=== PATIENT | female | born 1955 | race Caucasian/White ===

== ENCOUNTER 2019-09-18 18:57 | Emergency (ER) | payer BC ==
--- NOTE | 2019-09-18 21:01 | EDM.PDOC ---
ED HPI GENERAL MEDICAL PROBLEM - General Chief Complaint: Fever Stated Complaint: FEVER,BODY ACHES Time Seen by Provider: 09/18/19 19:16 Source of Information: Reports: Patient History Limitations: Reports: No Limitations - History of Present Illness INITIAL COMMENTS - FREE TEXT/NARRATIVE: This is a 64-year-old female. She has rectal cancer that has metastasized to her lungs and to her liver. She is under immunotherapy by Dr. Beyer at [facility]. Apparently she noted that she was running a low-grade fever at home yesterday and call Dr. Beyer and he indicated that if it climbs above 100.5 he needs to be notified. It did that today and even went up to 101 at home. She was told to come to the ER for evaluation. She denies any cold or congestion. She denies any sore throat and no ear pain. She has had no cough and no chest pain. She has had nausea but no vomiting. Was given an infusion of magnesium yesterday and she developed a headache yesterday but that is kind of normal for her. Her possible exposure to COVID is a son-in-law who was exposed to his mother that tested positive. He is showing no signs or symptoms of COVID but he cannot get tested until next Friday. Does complain of body aching with the fever. She believes that the headache is related to her magnesium infusion. Her last immunotherapy was about 2 weeks ago. - Related Data Allergies Allergy/AdvReac Type Severity Reaction Status Date / Time ciprofloxacin Allergy Severe Cannot Verified 09/18/19 19:16 Remember silver Allergy Severe Rash Verified 09/18/19 19:16 [From Tegaderm AG Mesh] Home Meds: Home Meds guaiFEN/Phenyleph/Acetaminophn [Tylenol Sinus Congest-Pain Cpl] 1 tab PO PRN 08/09/13 [History] Acetaminophen/oxyCODONE [Percocet 325-5 MG] 1 - 2 tab PO Q4H PRN #60 tab 08/10/13 [Rx] Lidocaine/Prilocaine [EMLA Crm] 1 gm TOP DAILY PRN #1 tube 08/10/13 [Rx] Past Medical History Oncologic (Cancer) History: Reports: Liver, Lung, Other (See Below) Other Oncologic History: anus - Past Surgical History GI Surgical History: Reports: Appendectomy, Colostomy, Other (See Below) Other GI Surgeries/Procedures: resection of liver, abdominoperineal resection. removed anus, rectum, rebuilt vagina Social & Family History - Tobacco Use Smoking Status *Q: Never Smoker Second Hand Smoke Exposure: No - Caffeine Use Caffeine Use: Reports: None - Recreational Drug Use Recreational Drug Use: No ED ROS GENERAL - Review of Systems Review Of Systems: See Below Constitutional: Reports: Fever, Chills HEENT: Denies: Dental Pain, Ear Discharge, Ear Pain, Rhinitis, Sinus Problem, Throat Pain, Throat Swelling Respiratory: Denies: Shortness of Breath, Cough Cardiovascular: Denies: Chest Pain Endocrine: Reports: No Symptoms GI/Abdominal: Reports: Nausea. Denies: Abdominal Pain, Diarrhea, Vomiting : Denies: Discharge, Dysuria Musculoskeletal: Reports: No Symptoms Skin: Reports: Other (No skin lesions to suggest infection) Neurological: Reports: No Symptoms Psychiatric: Reports: No Symptoms Hematologic/Lymphatic: Reports: No Symptoms ED EXAM, SEPSIS - Physical Exam Exam: See Below Exam Limited By: No Limitations General Appearance: Alert, WD/WN, No Apparent Distress Eye Exam: Bilateral Eye: Normal Inspection Ears: Normal External Exam, Normal Canal, Normal TMs Nose: Normal Inspection, Normal Mucosa. No: Nasal Drainage, Clear Rhinorrhea Throat/Mouth: Normal Inspection, Normal Lips, Normal Oropharynx, Normal Voice, No Airway Compromise, Dental Tenderness. No: Dental Abscess, Dental Decay, Dental Trauma, Tonsillar Erythema, Tonsillar Exudate Head: Normocephalic Neck: Normal Inspection, Supple Respiratory/Chest: No Respiratory Distress, Lungs Clear, Normal Breath Sounds Cardiovascular: Regular Rate, Rhythm, No Murmur GI/Abdominal Exam: Soft, Non-Tender Back: Full Range of Motion Extremities: Normal Inspection, Normal Range of Motion Neurological: Alert, Oriented Psychiatric: Normal Affect, Normal Mood Skin: Warm, Dry Course - Vital Signs Last Recorded V/S: Last Vital Signs Temp 100.9 F H 09/18/19 19:13 Pulse 92 09/18/19 19:13 Resp 16 09/18/19 19:13 BP 152/86 H 09/18/19 19:13 Pulse Ox 94 L 09/18/19 19:13 - Orders/Labs/Meds Orders: Active Orders 24 hr Category Date Time Status CXR [Chest 1V Frontal] [CR] Stat Exams 09/18/19 20:54 Taken CULTURE BLOOD [BC] Stat Lab 09/18/19 21:16 Received CULTURE BLOOD [BC] Stat Lab 09/18/19 21:23 Received CULTURE STREP A CONFIRMATION [] Stat Lab 09/18/19 20:53 Results CULTURE URINE [] Stat Lab 09/18/19 20:53 Received Rapid Strep w/culture conf [STREP SCRN A RAPID W CULT Lab 09/18/19 20:53 Results CONF] [RM] Stat Blood Culture x2 Reflex Set [OM.PC] Stat Oth 09/18/19 20:52 Ordered Labs: Laboratory Tests 09/18/19 09/18/19 09/18/19 Range/Units 19:25 20:53 21:16 WBC 2.82 L (3.98-10.04) K/mm3 RBC 4.47 (3.98-5.22) M/mm3 Hgb 14.2 D (11.2-15.7) gm/dl Hct 42.1 (34.1-44.9) % MCV 94.2 D (79.4-94.8) fl MCH 31.8 (25.6-32.2) pg MCHC 33.7 (32.2-35.5) g/dl RDW Std Deviation 52.3 H (36.4-46.3) fL Plt Count 106 L (182-369) K/mm3 MPV 12.1 (9.4-12.3) fl Neut % (Auto) 61.7 (34.0-71.1) % Lymph % (Auto) 23.0 (19.3-51.7) % Barron % (Auto) 13.8 H (4.7-12.5) % Eos % (Auto) 0.4 L (0.7-5.8) Baso % (Auto) 0.7 (0.1-1.2) % Neut # (Auto) 1.74 (1.56-6.13) K/mm3 Lymph # (Auto) 0.65 L (1.18-3.74) K/mm3 Barron # (Auto) 0.39 H (0.24-0.36) K/mm3 Eos # (Auto) 0.01 L (0.04-0.36) K/mm3 Baso # (Auto) 0.02 (0.01-0.08) K/mm3 Manual Slide Review Abnormal smear Sodium (136-145) mEq/L Potassium (3.5-5.1) mEq/L Chloride (98-107) mEq/L Carbon Dioxide (21-32) mEq/L Anion Gap (5-15) BUN (7-18) mg/dL Creatinine (0.55-1.02) mg/dL Est Cr Clr Drug Dosing mL/min Estimated GFR (MDRD) (>60) mL/min BUN/Creatinine Ratio (14-18) Glucose (80-115) mg/dL Lactic Acid (0.4-2.0) mmol/L Calcium (8.5-10.1) mg/dL Magnesium (1.8-2.4) mg/dl Total Bilirubin (0.2-1.0) mg/dL AST (15-37) U/L ALT (14-59) U/L Alkaline Phosphatase (46-116) U/L C-Reactive Protein (<1.0) mg/dL Total Protein (6.4-8.2) g/dl Albumin (3.4-5.0) g/dl Globulin gm/dL Albumin/Globulin Ratio (1-2) Urine Color Yellow (Yellow) Urine Appearance Clear (Clear) Urine pH 6.5 (5.0-8.0) Ur Specific Derwent 1.025 (1.005-1.030) Urine Protein Negative (Negative) Urine Glucose (UA) Negative (Negative) Urine Ketones Negative (Negative) Urine Occult Blood Trace-intact H (Negative) Urine Nitrite Negative (Negative) Urine Bilirubin Negative (Negative) Urine Urobilinogen 0.2 (0.2-1.0) Ur Leukocyte Esterase Negative (Negative) Urine RBC 0-5 (0-5) /hpf Urine WBC 0-5 (0-5) /hpf Ur Squamous Epith Cells 0-5 (0-5) /hpf Urine Bacteria Occasional (FEW) /hpf Urine Mucus Not seen (FEW) /hpf SARS Virus RNA (PCR) Negative (NEGATIVE) 09/18/19 09/18/19 09/18/19 Range/Units 21:16 21:16 21:16 WBC (3.98-10.04) K/mm3 RBC (3.98-5.22) M/mm3 Hgb (11.2-15.7) gm/dl Hct (34.1-44.9) % MCV (79.4-94.8) fl MCH (25.6-32.2) pg MCHC (32.2-35.5) g/dl RDW Std Deviation (36.4-46.3) fL Plt Count (182-369) K/mm3 MPV (9.4-12.3) fl Neut % (Auto) (34.0-71.1) % Lymph % (Auto) (19.3-51.7) % Barron % (Auto) (4.7-12.5) % Eos % (Auto) (0.7-5.8) Baso % (Auto) (0.1-1.2) % Neut # (Auto) (1.56-6.13) K/mm3 Lymph # (Auto) (1.18-3.74) K/mm3 Barron # (Auto) (0.24-0.36) K/mm3 Eos # (Auto) (0.04-0.36) K/mm3 Baso # (Auto) (0.01-0.08) K/mm3 Manual Slide Review Sodium 137 (136-145) mEq/L Potassium 3.2 L (3.5-5.1) mEq/L Chloride 100 (98-107) mEq/L Carbon Dioxide 26 (21-32) mEq/L Anion Gap 14.2 (5-15) BUN 16 (7-18) mg/dL Creatinine 1.3 H (0.55-1.02) mg/dL Est Cr Clr Drug Dosing 37.75 mL/min Estimated GFR (MDRD) 41 (>60) mL/min BUN/Creatinine Ratio 12.3 L (14-18) Glucose 111 (80-115) mg/dL Lactic Acid 1.2 (0.4-2.0) mmol/L Calcium 8.7 (8.5-10.1) mg/dL Magnesium 1.6 L (1.8-2.4) mg/dl Total Bilirubin 0.5 (0.2-1.0) mg/dL AST 62 H (15-37) U/L ALT 74 H (14-59) U/L Alkaline Phosphatase 99 (46-116) U/L C-Reactive Protein 3.1 H* (<1.0) mg/dL Total Protein 7.8 (6.4-8.2) g/dl Albumin 3.7 (3.4-5.0) g/dl Globulin 4.1 gm/dL Albumin/Globulin Ratio 0.9 L (1-2) Urine Color (Yellow) Urine Appearance (Clear) Urine pH (5.0-8.0) Ur Specific Derwent (1.005-1.030) Urine Protein (Negative) Urine Glucose (UA) (Negative) Urine Ketones (Negative) Urine Occult Blood (Negative) Urine Nitrite (Negative) Urine Bilirubin (Negative) Urine Urobilinogen (0.2-1.0) Ur Leukocyte Esterase (Negative) Urine RBC (0-5) /hpf Urine WBC (0-5) /hpf Ur Squamous Epith Cells (0-5) /hpf Urine Bacteria (FEW) /hpf Urine Mucus (FEW) /hpf SARS Virus RNA (PCR) (NEGATIVE) - Radiology Interpretation Free Text/Narrative:: Chest x-ray does not show any acute changes or infection. - Re-Assessments/Exams Free Text/Narrative Re-Assessment/Exam: 09/18/19 22:[address] Beyer regarding the presentation of the patient. He feels that since she is not neutropenic she does not need antibiotics at this time. Since we cannot find a focus of infection we need to wait for the blood cultures were to see how this results. I spoke to the patient regarding this conversation and that she is to continue to take fever relievers but if things get out of hand or worsen she needs to return to the ER. In the meantime she is to avoid contact with individuals. She is to take medications to control her fever. She is to call Dr. Beyer on Friday regarding her status. Departure - Departure Time of Disposition: 22:55 Disposition: Home, Self-Care 01 Condition: Fair Clinical Impression: Fever of undetermined origin, History of cancer, Long-term use of immunosuppressant medication - Discharge Information *PRESCRIPTION DRUG MONITORING PROGRAM REVIEWED*: Not Applicable *COPY OF PRESCRIPTION DRUG MONITORING REPORT IN PATIENT BARBARA: Not Applicable Instructions: Fever, Adult, [id number] Referrals: Kate Robles MD [Primary Care Provider] - Pawan Beyer MD [Ordering Only Provider] - Forms: ED Department Discharge Additional Instructions: Continue to isolate yourself from other family members and people, take medications to help control your fever, we will will await for the blood cultures and if anything develops or you find something new or your fever is uncontrollable return to the ER, give Dr. Beyer a call on Friday regarding how you are doing Sepsis Event Note (ED) - Evaluation Sepsis Screening Result: Possible Sepsis Risk - Focused Exam Vital Signs: Vital Signs Temp Pulse Resp BP Pulse Ox 09/18/19 19:13 100.9 F H 92 16 152/86 H 94 L ED Communication - ED Communication Date/Time Date: 09/18/19 Time Called: 22:57 - Discussed Case With (1) Discussed Case With (1): Outpatient Provider Person/s Notified (1): Pawan Beyer (I spoke to him regarding the patient's condition and presentation.) - My Orders Last 24 Hours: My Active Orders 09/18/19 20:52 Blood Culture x2 Reflex Set [OM.PC] Stat 09/18/19 20:53 CULTURE STREP A CONFIRMATION [RM] Stat CULTURE URINE [RM] Stat Rapid Strep w/culture conf [STREP SCRN A RAPID W CULT CONF] [RM] Stat 09/18/19 20:54 CXR [Chest 1V Frontal] [CR] Stat 09/18/19 21:16 CULTURE BLOOD [BC] Stat 09/18/19 21:23 CULTURE BLOOD [BC] Stat - Assessment/Plan Last 24 Hours: My Active Orders 09/18/19 20:52 Blood Culture x2 Reflex Set [OM.PC] Stat 09/18/19 20:53 CULTURE STREP A CONFIRMATION [RM] Stat CULTURE URINE [RM] Stat Rapid Strep w/culture conf [STREP SCRN A RAPID W CULT CONF] [RM] Stat 09/18/19 20:54 CXR [Chest 1V Frontal] [CR] Stat 09/18/19 21:16 CULTURE BLOOD [BC] Stat 09/18/19 21:23 CULTURE BLOOD [BC] Stat
--- NOTE | 2019-09-19 12:13 | CR ---
Chest: Portable supine view of the chest was obtained. Comparison: Prior chest x-ray of 08/10/13. Heart size and mediastinum are within normal limits. Lungs are clear with no acute parenchymal change. Right-sided infusion port is seen. Bony structures are grossly intact. Impression: 1. Nothing acute is seen on portable chest x-ray. Diagnostic code #1 This report was dictated in MDT
== END 2019-09-18 23:08 | disposition home or self-care (01) ==
LOC: JD.ED 18:57
DX: R50.9 Fever, unspecified (principal); Z88.1 Allergy status to other antibiotic agents; Z91.048 Other nonmedicinal substance allergy status; Z79.899 Other long term (current) drug therapy; Z85.05 Personal history of malignant neoplasm of liver; Z85.118 Personal history of other malignant neoplasm of bronchus and lung; Z20.828 Contact with and (suspected) exposure to other viral communicable diseases
CPT/HCPCS: 36415; 71045; 71045-26; 80053; 81001; 83605; 83735; 85025; 86140; 87040; 87081; 87086; 87430; 99282; 99283-25; U0002

== ENCOUNTER 2021-05-28 12:36 | Inpatient (IN) | payer BC ==
[2021-05-28] MEDS ORDERED: Sodium Chloride 0.9% 10 ML Syringe FLUSH PRN (13:10)
[2021-05-28] MEDS ORDERED: Sodium Chloride 0.9% 1,000 ML IV SCH (13:15)
[2021-05-28] MEDS ORDERED: Ondansetron 4 MG/2 ML SDV IVPUSH ONE ×2 (13:19→17:47)
[2021-05-28 15:11] LABS: HEMOGLOBIN A1C 12.1 %
[2021-05-28] MEDS ORDERED: Sodium Chloride 0.9% 1,000 ML IV ONE (15:30)
[2021-05-28] MEDS ORDERED: Magnesium Sulfate/Water 2 GM in Premix Bag 1 BAG IV ONE (15:35)
[2021-05-28] MEDS ORDERED: Insulin Regular, Human 100 Units/ML 3 ML Vial SUBCUT ONE (16:04)
[2021-05-28] MEDS ORDERED: Ondansetron 8 MG in Sodium Chloride 0.9% 50 ML IV PRN (16:49)
[2021-05-28] MEDS ORDERED: LORazepam 2 MG/ML SDV IV PRN (16:49)
[2021-05-28] MEDS ORDERED: Pantoprazole 40 MG Vial IVPUSH ONE ×2 (16:49→21:00)
[2021-05-28] MEDS ORDERED: Enoxaparin 40 MG/0.4 ML Syringe SUBCUT SCH (17:00)
[2021-05-28] MEDS ORDERED: Lactated Ringers 1,000 ML IV SCH ×2 (17:00→21:15)
[2021-05-28] MEDS ORDERED: Magnesium Sulfate/Water 2 GM in Premix Bag 1 BAG IV SCH (17:15)
[2021-05-28 17:20] LABS: CORONAVIRUS COVID-19 NAA NEGATIVE (NEGATIVE)
[2021-05-28] MEDS ORDERED: Ibuprofen 600 MG Tab PO PRN (17:24)
[2021-05-28] MEDS ORDERED: Insulin Glargine,Human Rec. Analog 100 Units/ML 3 ML Pen SUBCUT SCH ×2 (21:00)
[2021-05-28] MEDS ORDERED: Magnesium Sulfate (4.06 MEQ/ML) 5 GM/10 ML SDV IV STA (21:05)
[2021-05-28] MEDS ORDERED: Magnesium Sulfate/Water 2 GM in Premix Bag 1 BAG IV STA (21:08)
[2021-05-28] MEDS: Insulin Lispro 100 Unit/ML 3 ML KwikPen SUBCUT SCH (21:10)
[2021-05-28] MEDS: Enoxaparin 40 MG/0.4 ML Syringe SUBCUT SCH (21:33)
[2021-05-28] MEDS: traZODone 50 MG Tab PO SCH (21:53)
[2021-05-29] MEDS: Potassium Chloride 20 MEQ Tab.ER PO SCH ×5 (01:27→20:27)
[2021-05-29] MEDS: Acetaminophen 325 MG Tab PO PRN ×2 (02:01→07:46)
[2021-05-29] MEDS: Ondansetron 4 MG Tab.DIS PO PRN ×3 (02:02→15:57)
[2021-05-29] MEDS: Levothyroxine 100 MCG Tab PO SCH (06:08)
[2021-05-29] MEDS: Insulin Lispro 100 Unit/ML 3 ML KwikPen SUBCUT SCH ×3 (07:49→17:48)
[2021-05-29] MEDS ORDERED: Enoxaparin 30 MG/0.3 ML Syringe SUBCUT SCH (09:00)
[2021-05-29] MEDS ORDERED: Dextrose 5%-0.45% NaCl 1,000 ML IV SCH (09:00)
[2021-05-29] MEDS ORDERED: Hydrocortisone Sodium Succinate 100 MG/2 ML SDV IVPUSH ONE (09:01)
[2021-05-29] MEDS: diphenhydrAMINE 25 MG Cap PO SCH ×2 (10:13→17:48)
[2021-05-29] MEDS: Potassium Chloride 10 MEQ in Premix Bag 1 BAG IV SCH ×4 (10:13→13:53)
[2021-05-29] MEDS: Sodium Chloride 0.9% 1,000 ML IV SCH ×2 (11:21→19:35)
[2021-05-29] MEDS: Enoxaparin 40 MG/0.4 ML Syringe SUBCUT SCH (20:28)
[2021-05-29] MEDS: traZODone 50 MG Tab PO SCH (20:28)
[2021-05-29] MEDS ORDERED: Insulin Glargine,Human Rec. Analog 100 Units/ML 3 ML Pen SUBCUT SCH (21:00)
[2021-05-29] MEDS ORDERED: Pantoprazole 40 MG Vial IVPUSH SCH (21:00)
[2021-05-29] MEDS ORDERED: traZODone 50 MG Tab PO SCH (21:00)
[2021-05-30] MEDS: Acetaminophen 325 MG Tab PO PRN (00:19)
[2021-05-30] MEDS: diphenhydrAMINE 25 MG Cap PO SCH ×2 (00:35→08:14)
[2021-05-30] MEDS: Sodium Chloride 0.9% 1,000 ML IV SCH (03:44)
[2021-05-30] MEDS: Levothyroxine 100 MCG Tab PO SCH (07:26)
[2021-05-30] MEDS: Potassium Chloride 20 MEQ Tab.ER PO SCH (08:14)
[2021-05-30] MEDS: Insulin Lispro 100 Unit/ML 3 ML KwikPen SUBCUT SCH ×2 (08:14→11:05)
== END 2021-05-30 17:00 | disposition home or self-care (01) | DRG 420 ==
LOC: JD.ED 12:36 → JD.OB 16:49 → JD.MS 17:24
PROVIDERS: ADMIT Pediatrics; ATTEND Pediatrics
DX: E10.65 Type 1 diabetes mellitus with hyperglycemia (principal); E87.6 Hypokalemia; E83.42 Hypomagnesemia; E06.3 Autoimmune thyroiditis; C78.6 Secondary malignant neoplasm of retroperitoneum and peritoneum; C78.7 Secondary malignant neoplasm of liver and intrahepatic bile duct; Z20.822 Contact with and (suspected) exposure to COVID-19; C78.00 Secondary malignant neoplasm of unspecified lung; C20 Malignant neoplasm of rectum; D69.59 Other secondary thrombocytopenia; E86.0 Dehydration; E03.9 Hypothyroidism, unspecified; T38.0X5A Adverse effect of glucocorticoids and synthetic analogues, initial encounter; T45.1X5A Adverse effect of antineoplastic and immunosuppressive drugs, initial encounter; K29.70 Gastritis, unspecified, without bleeding; Z88.1 Allergy status to other antibiotic agents; Z91.09 Other allergy status, other than to drugs and biological substances; Z90.49 Acquired absence of other specified parts of digestive tract
CPT/HCPCS: 0240U; 36415; 80048; 80053; 81001; 82009; 82800; 82947; 83036; 83690; 83735; 83930; 84100; 84443; 84681; 85025; 85379; 86140; 86337; 86341; 87040; 97110-GP; 97116-GP; 97161-GP; 99284; 99285; A9270-GY; C9113; J1642; J1650; J1720; J1815; J1815-GY; J2405; J3475; J3480; J7030; J7120

== ENCOUNTER 2022-07-12 13:12 | Emergency (ER) | payer BC, MEDICARE ==
[2022-07-12] MEDS ORDERED: Ondansetron 4 MG/2 ML SDV IVPUSH ONE (13:34)
[2022-07-12] MEDS ORDERED: Sodium Chloride 0.9% 1,000 ML IV ONE ×2 (13:34→17:12)
[2022-07-12] MEDS ORDERED: Sodium Chloride 0.9% 10 ML Syringe FLUSH PRN ×2 (13:34→13:38)
[2022-07-12] MEDS ORDERED: Iopamidol 612 MG/ML 100 ML Bottle IVPUSH ONE (13:38)
[2022-07-12] MEDS ORDERED: HYDROmorphone 0.5 MG/0.5 ML Syringe IVPUSH ONE (13:43)
[2022-07-12 15:19] LABS: BASOPHILS ABSOLUTE AUTO 0.03 K/mm3 (0.01-0.08); BASOPHILS PERCENT AUTO 0.3 % (0.1-1.2); EOSINOPHILS ABSOLUTE AUTO 0.03 K/mm3 (0.04-0.36); EOSINOPHILS PERCENT AUTO 0.3 (0.7-5.8); HEMATOCRIT 41.9 % (34.1-44.9); HEMOGLOBIN 13.6 gm/dl (11.2-15.7); IMMATURE GRAN ABSOLUTE AUTO 0.03 K/mm3 (0.00-0.10); IMMATURE GRAN PERCENT AUTO 0.3 % (<=1.0); LYMPHOCYTES PERCENT AUTO 9.4 % (19.3-51.7); MEAN CORPUSCULAR HGB CONC 32.5 g/dl (32.2-35.5); MEAN CORPUSCULAR VOLUME 92.3 fl (79.4-94.8); MEAN PLATELET VOLUME 12.3 fl (9.4-12.3); MONOCYTES PERCENT AUTO 11.3 % (4.7-12.5); NEUTROPHILS ABSOLUTE AUTO 8.34 K/mm3 (1.56-6.13); NEUTROPHILS PERCENT AUTO 78.4 % (34.0-71.1); PLATELET COUNT,PLT 186 K/mm3 (182-369); RED BLOOD CELL COUNT 4.54 M/mm3 (3.98-5.22); WHITE BLOOD CELL COUNT,WBC 10.63 K/mm3 (3.98-10.04)
[2022-07-12] MEDS ORDERED: LORazepam 2 MG/ML SDV IVPUSH ONE (15:41)
[2022-07-12 16:14] LABS: A/G RATIO 0.7 (1-2); ALBUMIN 2.7 g/dl (3.4-5.0); ANION GAP 10.1 (5-15); BILIRUBIN TOTAL 0.6 mg/dL (0.2-1.0); BUN/CREATININE RATIO 13.3 (14-18); C-REACTIVE PROTEIN 5.6 mg/dL (<1.0); CREATININE 1.2 mg/dL (0.55-1.02); EST CRCL DRUG DOSING (CG) 39.28 mL/min; MAGNESIUM 1.4 mg/dL (1.8-2.4); POTASSIUM,K 3.1 mEq/L (3.5-5.1); PROTEIN TOTAL,TP 6.6 g/dl (6.4-8.2)
[2022-07-12 17:56] LABS: BILIRUBIN,URINE NEGATIVE (Negative); COLOR,URINE YELLOW (Yellow); GLUCOSE,URINE NEGATIVE (Negative); KETONES,URINE NEGATIVE (Negative); LEUKOCYTE ESTERASE,URINE 2+ (Negative); NITRITE,URINE NEGATIVE (Negative); OCCULT BLOOD,URINE 1+ (Negative); PROTEIN,URINE TRACE (Negative)
[2022-07-12 18:05] LABS: APPEARANCE,URINE SLT CLOUDY (Clear); BACTERIA,URINE FEW /hpf (FEW); MUCUS,URINE FEW /hpf (FEW); SQUAMOUS EPITHELIAL CELLS,UR 0-5 /hpf (0-5); WBC,URINE 30-40 /hpf (0-5)
== END 2022-07-12 18:00 ==
LOC: JD.ED 13:12
DX: K56.609 Unspecified intestinal obstruction, unspecified as to partial versus complete obstruction (principal); E03.9 Hypothyroidism, unspecified; Z91.048 Other nonmedicinal substance allergy status; Z88.1 Allergy status to other antibiotic agents; Z79.899 Other long term (current) drug therapy
CPT/HCPCS: 36415; 71045; 74176; 80053; 81001; 83690; 83735; 85025; 86140; 96361; 96374; 96375; 99285; J1170; J2060; J3490; J7030; 99284